=== PATIENT | male | born 2000 | race Two or more races ===

== ENCOUNTER 2022-02-26 13:26 | Emergency (ER) | payer SELFPAY ==
[~2022-02-26] VITALS: Ht 180.3 cm; Wt 86.2 kg
[2022-02-26 13:32] VITALS: BP 151/77
[2022-02-26] MEDS ORDERED: SILVER SULFADIAZINE CREAM 25 GM TUBE ONE (15:17)
[2022-02-26] MEDS ORDERED: HYDR-4209 PO (15:22)
[2022-02-26] MEDS ORDERED: SILV20CR13 TP (15:22)
[2022-02-26] MEDS ORDERED: HYDROCODONE/APAP 5/325MG TABLET ONE (15:27)
[2022-02-26] MEDS ORDERED: SILVER SULFADIAZINE CREAM 25 GM TUBE TP ONE (15:30)
[2022-02-26] MEDS ORDERED: HYDROCODONE/APAP 5/325MG TABLET PO ONE (15:30)
--- NOTE | 2022-02-26 15:30 | NUR ---
Wound care as directed
--- NOTE | 2022-02-26 15:42 | NUR ---
Patient discharged to home in stable condition. Written and verbal after care instructions given. Patient verbalizes understanding of instruction.
== END 2022-02-26 15:43 | disposition home or self-care (01) ==
LOC: ER 13:30
DX: T23.201A Burn of second degree of right hand, unspecified site, initial encounter (principal); T23.151A Burn of first degree of right palm, initial encounter; X08.8XXA Exposure to other specified smoke, fire and flames, initial encounter; Y93.89 Activity, other specified; Y92.89 Other specified places as the place of occurrence of the external cause; Y99.8 Other external cause status